=== PATIENT | male | born 1960 ===

== ENCOUNTER 2021-03-07 09:36 | Emergency (ER) | payer OTHER ==
[~2021-03-07] VITALS: Ht 185.4 cm; Wt 97.7 kg
--- NOTE | 2021-03-07 10:36 | NUR ---
QUAN Castorena at bedside to assess patient. Nose bleed controlled at this time.
[2021-03-07 11:01] VITALS: BP 151/99
== END 2021-03-07 11:02 | disposition home or self-care (01) ==
LOC: ER 09:37
DX: R09.81 Nasal congestion (principal); R04.0 Epistaxis; I10 Essential (primary) hypertension; Z88.0 Allergy status to penicillin; Z88.7 Allergy status to serum and vaccine
CPT/HCPCS: 99282